=== PATIENT | female | born 1990 ===

== ENCOUNTER 2019-04-06 10:53 | Inpatient (IN) | payer OTHER ==
[~2019-04-06] VITALS: Ht 170.1 cm; Wt 53.1 kg
--- NOTE | ~2019-04-06 | EKG ---
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
[2019-04-06 10:56] VITALS: BP 121/77
[2019-04-06 12:00] VITALS: BP 104/55
[2019-04-06 12:00] LABS: BILIRUBIN 1+ (NEGATIVE); BLOOD NEGATIVE (NEGATIVE); CLARITY CLOUDY (CLEAR); COLOR YELLOW (YELLOW); GLUCOSE NEGATIVE (NEGATIVE); KETONE TRACE (NEGATIVE); LEUKO ESTERASE TRACE (NEGATIVE); NITRITE NEGATIVE (NEGATIVE); SPECIFIC GRAVITY 1.025 (1.005-1.030)
[2019-04-06 12:10] LABS: BASO # 0.1 10*3/uL (0.0-0.1); BASO % 0.8 % (0.0-1.0); EOS # 0.3 10*3/uL (0.0-0.4); EOS % 3.9 % (1.0-4.0); HEMATOCRIT 37.4 % (37.0-47.0); HEMOGLOBIN 12.3 g/dl (12.0-16.0); LYMPH # 1.8 10*3/uL (1.3-4.4); LYMPH % 24.3 % (27.0-41.0); MEAN CELL VOLUME 91.2 fl (81.0-99.0); MEAN CORPUSCULAR HGB CONC 32.9 g/dl (33.0-37.0); MEAN PLATELET VOLUME 8.2 fl (9.6-12.3); MONO # 0.5 10*3/uL (0.1-1.0); NEUT # 4.8 10*3/uL (2.3-7.9); NEUT % 63.9 % (47.0-73.0); PLATELET COUNT AUTOMATED 302 10*3/uL (130-400); RED CELL DISTRI WIDTH 13.4 % (0-14.5); WHITE BLOOD COUNT 7.5 10*3/uL (4.8-10.8)
[2019-04-06] MEDS ORDERED: SEROQUEL50 MG PO ×2 (12:12→13:24)
--- NOTE | 2019-04-06 12:12 | NUR ---
[place] STAFF SPOKE WITH PATIENT. PATIENT MEETS [facility]. PATIENT WANTS TO FOLLOW UP WITH A [facility] IN [place]. MELY FUENTES B.A. PER DIEM NURSE
[2019-04-06 12:20] LABS: ACT PARTIAL THROMBO TIME 26.2 SECONDS (20.0-32.1); INTERNATIONAL NORM RATIO 0.9 (2.0-3.5)
[2019-04-06 12:27] LABS: BACTERIA 3+; CALCIUM OXALATE CRYSTALS 1+; MUCOUS 2+; WBC 21-30 wbc/hpf (0-5)
[2019-04-06 12:28] LABS: URINE AMPHETAMINES < 1000 (1000ng/ml); URINE BARBITURATES < 200 (200ng/ml); URINE BENZODIAZEPINES < 200 (200ng/ml); URINE CANNABINOIDS (THC) < 50 (50ng/ml); URINE COCAINE > 300 (300ng/ml); URINE METHADONE < 300 (300ng/ml); URINE OPIATES > 300 (300ng/ml)
[2019-04-06 12:30] LABS: ALBUMIN 3.3 gm/dl (3.1-4.5); ALKALINE PHOSPHATASE 104 U/L (45-117); BUN 9 mg/dl (7-24); CHLORIDE 100 mmol/L (98-107); CREATININE 0.39 mg/dL (0.55-1.02); POTASSIUM 3.1 mmol/L (3.5-5.1); SGOT/AST 57 IU/L (3-35); SGPT/ALT 66 U/L (12-78); SODIUM 138 mmol/L (136-145); TOTAL PROTEIN 7.2 gm/dL (6.4-8.2)
[2019-04-06 12:31] LABS: URINE PHENCYCLIDINE < 25 (25ng/ml)
[2019-04-06 12:32] LABS: ETHYL ALCOHOL < 3.0 mg/dl (<3)
--- NOTE | 2019-04-06 12:43 | NUR ---
PT REMAINS W/O ACUTE DISTRESS NOTED AWAITING ALL RESULTS FOR ADDITIONAL PLAN OF CARE,MULTIPLE ADDITIONAL SCABBED AREAS NOTED TO PT'S BODY,LENA BRAXTON FROM WOUND CARE TO ED FOR HELP WITH PHOTOGRAPHS.
[2019-04-06 12:50] VITALS: BP 118/68
[2019-04-06 13:00] VITALS: BP 104/55
--- NOTE | 2019-04-06 13:00 | NUR ---
29 year old admitted to room # 415-1 for stabilization. 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 Compliant with admission procedure. Patient denies any anxiety, but is unable to sit still, taps toes to floor continuously, looks about room, unable to focus eyes on nurse during interview. See assessment forms for additional information about patient status.
[2019-04-06] MEDS ORDERED: SEROQUEL100 MG PO (13:24)
[2019-04-06 16:00] VITALS: BP 110/66
[2019-04-06 20:00] VITALS: BP 106/65
[2019-04-07] VITALS: BP 110/51
[2019-04-07 08:00] VITALS: BP 123/75
--- NOTE | 2019-04-07 09:40 | NUR ---
MEDICATED WITH IV BENADRYL FOR MILD ANXIETY, PT REFUSES VISTARIL OR ANY OTHER PRN MEDS ( THEY DON'T HELP). WILL MONITOR FOR EFFECTIVENESS.
--- NOTE | 2019-04-07 10:10 | NUR ---
CALLED INTO PT'S ROOM, PT VERY AGITATED STATING SHE IS HURTING ALL OVER. EXPLAINED TO PT THAT SHE HAS MUTLIPLE MEDICATIONS AVAILABLE TO HELP WITH HER SYMPTOMS, SHE THEN STATES THAT NONE OF THOSE MEDICATIONS HELP WITH OPEN SORES. EXPLAINED TO PT THAT SHE IS RECEIVING STEROIDS AND ANTIBIOTICS TO HELP HEAL THE SORES, AND I COULD GIVE HER MOTRIN/TYLENOL FOR PAIN. PT ANGRILY RIPS HEART MONITOR OFF AND STATES "I'M DONE WITH THIS HOSPITAL". EXPLAINED SHE COULD HAVE ATIVAN PRN FOR ANXIEY, PT AGRESS TO PUT HEART MONITOR BACK ON AND TAKE THE ATIVAN AND MOTRIN. GIVEN PER PRN ORDER. WILL MONITOR FOR EFFECTIVENESS.
[2019-04-07 12:00] VITALS: BP 117/75
--- NOTE | 2019-04-07 12:00 | NUR ---
PT RESTING, HAD TO BE AWOKEN FOR SCHEDULED LIBRIUM, PT STATES SHE IS STILL VERY ANXIOUS. EXPLAINED PURPOSE OF MEDICATIONS. ENCOURAGED TO CALL IF NO RELIEF OF SYMPTOMS.
--- NOTE | 2019-04-07 13:42 | NUR ---
SPOKE WITH DR KITCHEN REGARDING WOUND CARE ORDERS. ORDERS RECEIVED.
[2019-04-07 16:00] VITALS: BP 120/69
--- NOTE | 2019-04-07 18:23 | NUR ---
MEDICATED WITH IV ATIVAN FOR COMPLAINTS OF INCREASED ANXIETY. WILL MONITOR FOR EFFECTIVENESS.
[2019-04-07 20:00] VITALS: BP 138/67
--- NOTE | 2019-04-07 23:03 | NUR ---
TOOK OVER CARE OF PT AT THIS TIME.
--- NOTE | 2019-04-07 23:09 | NUR ---
24 HR chart check completed.
[2019-04-08] VITALS: BP 101/59; BP 136/102
--- NOTE | 2019-04-08 01:31 | NUR ---
SHEKHAR AMEZQUITA CALLS THIS NURSE AND STATES THAT PT IS OFF OF HEART MONITOR. UPON ENTERING ROOM AND ASKING PT TO BE PUT BACK ON HER HEART MONITOR, PT REFUSES. 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 WILL ATTEMPT AGAIN. SHEKHAR AMEZQUITA NOTIFIED.
--- NOTE | 2019-04-08 01:41 | NUR ---
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 PT REFUSES AGAIN. WILL CONTINUE TO ENCOURAGE PT AND MONITOR. PT LYING IN BED. CALL LIGHT IN REACH.
--- NOTE | 2019-04-08 02:01 | NUR ---
PT GIVEN 1 MG ATIVAN VIA IV PER ORDERS ON EMAR FOR C/O ANXIETY. PT STATES THAT SHE FEELS AWFUL BUT REFUSES TO TRY OTHER PRN MEDICATIONS FOR WITHDRAWAL S/S BECAUSE SHE STATES THAT THOSE MEDICAITONS DO NOT WORK. WILL MONITOR FOR EFFECTIVENESS OF ATIVAN. CALL LIGHT IN REACH.
--- NOTE | 2019-04-08 06:00 | NUR ---
PT REFUSES BACTROBAN TO BODY SORES AT THIS TIME.
[2019-04-08 06:10] LABS: BASO % 0.5 % (0.0-1.0); EOS # 0.1 10*3/uL (0.0-0.4); EOS % 0.8 % (1.0-4.0); HEMATOCRIT 36.2 % (37.0-47.0); HEMOGLOBIN 11.7 g/dl (12.0-16.0); LYMPH # 2.5 10*3/uL (1.3-4.4); MEAN CELL VOLUME 91.4 fl (81.0-99.0); MEAN CORPUSCULAR HGB 29.5 pg (27.0-31.0); MEAN CORPUSCULAR HGB CONC 32.3 g/dl (33.0-37.0); MEAN PLATELET VOLUME 8.5 fl (9.6-12.3); MONO # 0.7 10*3/uL (0.1-1.0); MONO % 7.8 % (3.0-9.0); NEUT # 5.4 10*3/uL (2.3-7.9); NEUT % 61.6 % (47.0-73.0); PLATELET COUNT AUTOMATED 297 10*3/uL (130-400); RED BLOOD COUNT 3.96 10*6/uL (4.10-5.10); WHITE BLOOD COUNT 8.8 10*3/uL (4.8-10.8)
[2019-04-08 06:28] LABS: BUN 11 mg/dl (7-24); CHLORIDE 111 mmol/L (98-107); POTASSIUM 3.2 mmol/L (3.5-5.1); SODIUM 142 mmol/L (136-145)
[2019-04-08 08:00] VITALS: BP 106/64
--- NOTE | 2019-04-08 08:13 | NUR ---
MEDICATED WITH IV ATIVAN AND BENADRYL PER ORDERS AND REQUEST. PATIENT REFUSING TO WEAR HEART MONITOR DR. SMITH AWARE. PATIENT IS NON COMPLIANT WITH MOST CARE OR MEDICATIONS.
--- NOTE | 2019-04-08 12:57 | NUR ---
DR. KITCHEN AND NEEDLE MAKER AWARE PATIENTIS GONE. AMA.
== END 2019-04-08 13:24 | disposition left against medical advice (07) | DRG 770 ==
LOC: ED 10:53 → EDHOLD 11:59 → 4E 12:06 → 5E 15:10
PROVIDERS: Family Medicine; ADMIT Emergency Medicine
DX: F11.23 Opioid dependence with withdrawal (principal); F14.10 Cocaine abuse, uncomplicated; F17.210 Nicotine dependence, cigarettes, uncomplicated; E87.6 Hypokalemia; R73.9 Hyperglycemia, unspecified; E83.41 Hypermagnesemia; B19.20 Unspecified viral hepatitis C without hepatic coma; R23.8 Other skin changes; F10.10 Alcohol abuse, uncomplicated; Z53.29 Procedure and treatment not carried out because of patient's decision for other reasons; F13.20 Sedative, hypnotic or anxiolytic dependence, uncomplicated; E44.0 Moderate protein-calorie malnutrition; Z71.6 Tobacco abuse counseling; Z68.1 Body mass index [BMI] 19.9 or less, adult; Z88.0 Allergy status to penicillin; Z88.1 Allergy status to other antibiotic agents; Z88.8 Allergy status to other drugs, medicaments and biological substances; Z90.49 Acquired absence of other specified parts of digestive tract; Z86.14 Personal history of Methicillin resistant Staphylococcus aureus infection; Z81.8 Family history of other mental and behavioral disorders; Z80.3 Family history of malignant neoplasm of breast; Z84.89 Family history of other specified conditions; Z79.899 Other long term (current) drug therapy

== ENCOUNTER 2020-03-29 03:29 | Emergency (ER) | payer OTHER ==
[~2020-03-29] VITALS: Wt 63.5 kg
[~2020-03-29 03:29] MED LIST: SEROQUEL100 MG PO; SEROQUEL50 MG PO
[2020-03-29] MEDS ORDERED: SEPTDS PO (03:53)
[2020-03-29] MEDS ORDERED: BUSPIRONE HCL7.5 MG PO (10:50)
[2020-03-29] MEDS ORDERED: VENLAFAXINE HY150 M2 PO (10:51)
[2020-03-29] MEDS ORDERED: DIVALPROEX SOD500 M1 PO (10:52)
[2020-03-29] MEDS ORDERED: DOXYCYCLINE HY100 M3 PO (10:53)
== END 2020-03-29 04:00 | disposition home or self-care (01) ==
LOC: ED 03:29
DX: L03.818 Cellulitis of other sites (principal); Z88.0 Allergy status to penicillin; Z88.8 Allergy status to other drugs, medicaments and biological substances; Z79.899 Other long term (current) drug therapy

== ENCOUNTER 2020-03-29 08:41 | Inpatient (IN) | payer OTHER ==
[~2020-03-29] VITALS: Ht 170.1 cm; Wt 59.0 kg
[~2020-03-29 08:41] MED LIST changes: +SEPTDS PO
[2020-03-29 08:51] VITALS: BP 100/78
[2020-03-29 09:38] LABS: BASO # 0.1 10*3/uL (0.0-0.1); BASO % 1.1 % (0.0-1.0); EOS # 0.2 10*3/uL (0.0-0.4); EOS % 2.2 % (1.0-4.0); LYMPH # 2.2 10*3/uL (1.3-4.4); MEAN CELL VOLUME 93.3 fl (81.0-99.0); MEAN CORPUSCULAR HGB 30.9 pg (27.0-31.0); MEAN CORPUSCULAR HGB CONC 33.1 g/dl (33.0-37.0); MEAN PLATELET VOLUME 8.4 fl (9.6-12.3); MONO # 1.2 10*3/uL (0.1-1.0); MONO % 11.3 % (3.0-9.0); NEUT # 6.4 10*3/uL (2.3-7.9); NEUT % 63.2 % (47.0-73.0); PLATELET COUNT AUTOMATED 323 10*3/uL (130-400); RED BLOOD COUNT 3.75 10*6/uL (4.10-5.10); WHITE BLOOD COUNT 10.2 10*3/uL (4.8-10.8)
[2020-03-29 09:52] LABS: ALBUMIN 3.1 gm/dl (3.1-4.5); ALKALINE PHOSPHATASE 82 U/L (45-117); BUN 9 mg/dl (7-24); CHLORIDE 105 mmol/L (98-107); CREATININE 0.61 mg/dL (0.55-1.02); POTASSIUM 3.3 mmol/L (3.5-5.1); SGOT/AST 35 IU/L (3-35); SGPT/ALT 32 U/L (12-78); SODIUM 139 mmol/L (136-145)
[2020-03-29] MEDS ORDERED: BUSPIRONE HCL7.5 MG PO (10:50)
[2020-03-29] MEDS ORDERED: VENLAFAXINE HY150 M2 PO (10:51)
[2020-03-29] MEDS ORDERED: DIVALPROEX SOD500 M1 PO (10:52)
[2020-03-29] MEDS ORDERED: DOXYCYCLINE HY100 M3 PO (10:53)
[2020-03-29 11:29] VITALS: BP 100/78
[2020-03-29 12:30] VITALS: BP 110/80
[2020-03-29 16:00] VITALS: BP 127/89
[2020-03-29 17:44] LABS: BILIRUBIN Negative (Negative); BLOOD Negative (Negative); CLARITY Turbid (Clear); COLOR Yellow (Yellow); GLUCOSE Negative (Negative); KETONE Negative (Negative); LEUKO ESTERASE Negative (Negative); NITRITE Negative (Negative); SPECIFIC GRAVITY 1.025 (1.001-1.030)
[2020-03-29 17:54] LABS: BACTERIA TRACE; WBC 0-2 wbc/hpf (0-5)
[2020-03-29 18:03] LABS: URINE AMPHETAMINES < 1000 (1000ng/ml); URINE BARBITURATES < 200 (200ng/ml); URINE BENZODIAZEPINES < 200 (200ng/ml); URINE CANNABINOIDS (THC) > 50 (50ng/ml); URINE COCAINE > 300 (300ng/ml); URINE METHADONE < 300 (300ng/ml); URINE OPIATES < 300 (300ng/ml)
[2020-03-29 18:16] LABS: URINE PHENCYCLIDINE < 25 (25ng/ml)
[2020-03-29 20:00] VITALS: BP 98/62
[2020-03-30] VITALS: BP 90/68
[2020-03-30 08:00] VITALS: BP 112/71
[2020-03-30 12:00] VITALS: BP 110/60
[2020-03-30 16:08] VITALS: BP 101/61
[2020-03-30 20:07] VITALS: BP 100/58
[2020-03-31] VITALS: BP 103/67
[2020-03-31 08:00] VITALS: BP 138/80
[2020-03-31 12:00] VITALS: BP 128/68
== END 2020-03-31 19:47 | disposition left against medical advice (07) | DRG 770 ==
LOC: ED 08:41 → EDHOLD 10:27 → 5E 10:27
PROVIDERS: Physician Assistant; ADMIT Emergency Medicine; ATTEND Emergency Medicine
DX: F11.23 Opioid dependence with withdrawal (principal); E87.6 Hypokalemia; E44.0 Moderate protein-calorie malnutrition; F17.210 Nicotine dependence, cigarettes, uncomplicated; R73.9 Hyperglycemia, unspecified; D64.9 Anemia, unspecified; M79.5 Residual foreign body in soft tissue; Z90.49 Acquired absence of other specified parts of digestive tract; Z88.0 Allergy status to penicillin; Z88.1 Allergy status to other antibiotic agents; Z88.8 Allergy status to other drugs, medicaments and biological substances; Z71.6 Tobacco abuse counseling; Z68.20 Body mass index [BMI] 20.0-20.9, adult; Z53.29 Procedure and treatment not carried out because of patient's decision for other reasons; L03.116 Cellulitis of left lower limb; L03.115 Cellulitis of right lower limb